=== PATIENT | female | born 1995 | race Caucasian/White ===

== ENCOUNTER 2017-09-03 21:46 | Emergency (ER) | payer MEDICAID ==
[2017-09-03] MEDS ORDERED: IBUPROFEN 400 MG TABLET ONE (23:07)
[2017-09-03] MEDS ORDERED: IBUPROFEN 200 MG TAB ONE (23:07)
== END 2017-09-03 23:53 | disposition home or self-care (01) ==
LOC: EDH 21:46
DX: S83.8X2A Sprain of other specified parts of left knee, initial encounter (principal); X58.XXXA Exposure to other specified factors, initial encounter; Y93.89 Activity, other specified; Y92.39 Other specified sports and athletic area as the place of occurrence of the external cause; Y99.8 Other external cause status
CPT/HCPCS: 73562